=== PATIENT | female | born 1975 | race African-American/Black ===

== ENCOUNTER → 2016-10-14 | Outpatient (CLI) | payer MEDICAID | LOC: WI 14:08 | PROVIDERS: ATTEND Nurse Practitioner | DX: Z12.31 Encounter for screening mammogram for malignant neoplasm of breast (principal) | CPT/HCPCS: 77067; G0202 ==

== ENCOUNTER → 2016-10-19 | Outpatient (CLI) | payer MEDICAID | LOC: RAD 08:16 | PROVIDERS: ATTEND Internal Medicine | DX: R79.82 Elevated C-reactive protein (CRP) (principal); R52 Pain, unspecified | CPT/HCPCS: 78306; A9503; Q9969 ==